=== PATIENT | male | born 1955 | race Asian ===

== ENCOUNTER 2021-09-26 04:16 | Day surgery (SDC) | payer BC, OTHER ==
[2021-09-24 11:52] VITALS: BMI 26.7
[2021-09-26] MEDS ORDERED: LIDOCAINE 1%/EPI 1:100000 (20 ML MULTI DOSE VIAL) ONE (08:19)
[2021-09-26] MEDS ORDERED: NEOSTIGMINE METHYLSULFATE 0.5 MG/ML - 10 ML MDV ONE (10:26)
[2021-09-26] MEDS ORDERED: GLYCOPYRROLATE 0.2 MG/1 ML VIAL ONE (11:08)
[2021-09-26] MEDS ORDERED: NALOXONE HCL 0.4 MG/ML VIAL ONE (11:08)
[2021-09-26] MEDS ORDERED: MIDAZOLAM HCL 2 MG/2 ML SINGLE DOSE VIAL ONE (11:25)
[2021-09-26] MEDS ORDERED: DEXAMETHASONE SOD PHOSPHATE 4 MG/1 ML VIAL ONE (11:39)
[2021-09-26] MEDS ORDERED: KETOROLAC TROMETHAMINE 30 MG/1 ML VIAL ONE (11:39)
[2021-09-26] MEDS ORDERED: ceFAZolin SODIUM 1 GM VIAL ONE (11:39)
[2021-09-26] MEDS ORDERED: ceFAZolin SODIUM 1 GM VIAL IVPB ONE (11:40)
[2021-09-26] MEDS ORDERED: LIDOCAINE 1%/EPI 1:100000 (20 ML MULTI DOSE VIAL) IJ ONE (11:46)
[2021-09-26] MEDS ORDERED: oxyCODONE HCL 5 MG TABLET PO PRN (12:20)
[2021-09-26] MEDS ORDERED: ONDANSETRON 4 MG/2 ML VIAL IVPUSH PRN (12:20)
[2021-09-26] MEDS ORDERED: ACETAMINOPHEN 325 MG TABLET (FP) PO PRN (12:20)
[2021-09-26] MEDS ORDERED: LACTATED RINGERS SOLUTION 1,000 ML IV SCH (12:30)
[2021-09-26 14:02] VITALS: BP 130/80; PULSE 83; TEMP 96.8
== END 2021-09-26 14:02 | disposition home or self-care (01) ==
LOC: JASU-SURG 04:16
PROVIDERS: ATTEND Surgery
PROC: 0JB70ZZ Excision of Back Subcutaneous Tissue and Fascia, Open Approach (ICD-10-PCS; principal; 2021-09-26 10:30)
DX: L72.3 Sebaceous cyst (principal); E11.9 Type 2 diabetes mellitus without complications
CPT/HCPCS: 88304-TC